=== PATIENT | male | born 1990 | race African-American/Black ===

== ENCOUNTER 2016-08-25 02:45 | Emergency (ER) | payer MEDICAID ==
[~2016-08-25] VITALS: Ht 167.6 cm; Wt 93.9 kg
[2016-08-25 02:56] VITALS: BP 100/68
--- NOTE | 2016-08-25 03:27 | NUR ---
PT TAKEN TO BED 7
--- NOTE | 2016-08-25 03:29 | NUR ---
Dr. Hernandez evaluating patient at bedside.
[2016-08-25] MEDS ORDERED: LIDOCAINE 1% 500 MG/50 ML VIAL INJ ONE (03:40)
--- NOTE | 2016-08-25 03:42 | NUR ---
X-Ray at bedside.
[2016-08-25] MEDS ORDERED: HYDROmorphone 1 MG/ML AMP IVP ONE (04:10)
--- NOTE | 2016-08-25 04:42 | NUR ---
Patient noted to have existing wounds upon arrival to ER. Wound covered with dressing. Physician informed.
[2016-08-25 05:22] VITALS: BP 130/71
--- NOTE | 2016-08-25 05:22 | NUR ---
Patient discharged with v/s stable. Written and verbal after care instructions given and explained. Patient alert, oriented and verbalized understanding of instructions. Ambulatory with steady gait. All questions addressed prior to discharge. ID band removed. Patient advised to follow up with PMD. Rx of IBUPROFEN, NORCO given. Patient educated on indication of medication including possible reaction and side effects. Opportunity to ask questions provided and answered.
== END 2016-08-25 05:22 | disposition home or self-care (01) ==
LOC: MED 02:45
DX: S62.331A Displaced fracture of neck of second metacarpal bone, left hand, initial encounter for closed fracture (principal); S61.412A Laceration without foreign body of left hand, initial encounter; W22.03XA Walked into furniture, initial encounter; Y93.89 Activity, other specified; Y92.89 Other specified places as the place of occurrence of the external cause; Y99.8 Other external cause status
CPT/HCPCS: 12001; 29125; 73130; 96374; 99284; J1170; J2001; Q0092

== ENCOUNTER 2017-09-28 22:48 | Emergency (ER) | payer MEDICAID ==
[~2017-09-28] VITALS: Ht 167.6 cm; Wt 95.3 kg
[2017-09-28 23:02] VITALS: BP 140/90
--- NOTE | 2017-09-28 23:04 | NUR ---
TO BED @ 10 AMBULATORY , REPORT GIVEN TO JIMENA YOUNG. Addendum: 09/28/17 at 2310 by [facility] [place], [place] TO BED # 9, AMBULATORY , REPORT KRISTOPHER TO JIMENA
--- NOTE | 2017-09-28 23:15 | NUR ---
27/M CAME IN ED WITH FAMILY, C/O 01/06 L ANKLE PAIN, NONRADIATING, X3 HOURS. PT STATED HE WAS PLAYING FOOTBALL, "PLANTED MY FOOT AND HEARD A POP." L ANKLE SWELLING NOTED, NO REDNESS, TENDER TO TOUCH, LIMITED ROM DUE TO PAIN AND SWELLING, +CIRCULATION, +SENSATION. SKIN IS INTACT, PINK/WARM/DRY; PATIENT POSITIONED FOR COMFORT; HOB ELEVATED; BEDRAILS UP X2; BED DOWN.
--- NOTE | 2017-09-28 23:16 | NUR ---
PT REFUSED ICE PACKS, L FOOT ELEVATED
[2017-09-28] MEDS ORDERED: KETOROLAC 60 MG/2 ML VIAL IM ONE (23:25)
--- NOTE | 2017-09-29 00:43 | NUR ---
PT SLEEPING COMFORTABLY AT THIS TIME, RR EVEN AND UNLABORED. ALL NEEDS MET.
[2017-09-29 01:30] VITALS: BP 135/90
--- NOTE | 2017-09-29 01:30 | NUR ---
Patient discharged with v/s stable. Written and verbal after care instructions given and explained. Patient alert, oriented and verbalized understanding of instructions. Ambulatory with steady gait. All questions addressed prior to discharge. ID band removed. Patient advised to follow up with PMD. Rx of NAPROSYN 500MG given. Patient educated on indication of medication including possible reaction and side effects. Opportunity to ask questions provided and answered. Addendum: 09/29/17 at 0138 by [facility] DISCHARGE INSTRUCTIONS GIVEN BY DR PRECIADO
--- NOTE | 2017-09-29 01:34 | NUR ---
Dr. Espinal evaluating patient at bedside.
== END 2017-09-29 01:30 | disposition home or self-care (01) ==
LOC: MED 22:48
DX: S90.32XA Contusion of left foot, initial encounter (principal); X58.XXXA Exposure to other specified factors, initial encounter; Y93.61 Activity, american tackle football; Y99.8 Other external cause status; Y92.89 Other specified places as the place of occurrence of the external cause
CPT/HCPCS: 73630; 96372; 99284; J1885

== ENCOUNTER 2017-12-24 23:45 | Emergency (ER) | payer MEDICAID ==
[~2017-12-24] VITALS: Ht 167.6 cm; Wt 95.3 kg
[2017-12-24 23:48] VITALS: BP 122/69
--- NOTE | 2017-12-24 23:52 | NUR ---
PT AMBULATED TO BED 9
--- NOTE | 2017-12-24 23:53 | NUR ---
27/M CAME IN W C/O LEFT LOWER BACK PAIN S/P FALLING OFF 4X4 TODAY. DENIES OTHER INJRUIES/HEAD INJURY/LOC. PT AMBULATED TO BED WITH STEADY GAIT BUT WITH PAIN, +PMSC TO LLE. DENIES OTHER PMH
--- NOTE | 2017-12-25 00:09 | NUR ---
PT TAKEN TO XRAY
--- NOTE | 2017-12-25 00:18 | NUR ---
PT RETURN FROM XRAY
--- NOTE | 2017-12-25 00:31 | NUR ---
Dr. Baum evaluating patient at beside.
[2017-12-25] MEDS ORDERED: KETOROLAC 60 MG/2 ML VIAL IM ONE (00:40)
[2017-12-25] MEDS ORDERED: LORazepam 2 MG/ML VIAL IM ONE (00:40)
[2017-12-25] MEDS ORDERED: fentaNYL 0.05 MG/ML VIAL IM ONE (01:25)
[2017-12-25 01:45] VITALS: BP 123/63
--- NOTE | 2017-12-25 01:45 | NUR ---
Patient discharged with v/s stable. Written and verbal after care instructions given and explained. Patient alert, oriented and verbalized understanding of instructions. Ambulatory with steady gait. All questions addressed prior to discharge. ID band removed. Patient advised to follow up with PMD. Rx of ROBAXIN, MOTRIN given. Patient educated on indication of medication including possible reaction and side effects. Opportunity to ask questions provided and answered.
== END 2017-12-25 01:45 | disposition home or self-care (01) ==
LOC: MED 23:45
DX: M54.5 Low back pain (principal); V86.99XA Unspecified occupant of other special all-terrain or other off-road motor vehicle injured in nontraffic accident, initial encounter; Y93.89 Activity, other specified; Y92.832 Beach as the place of occurrence of the external cause; Y99.8 Other external cause status
CPT/HCPCS: 72100; 96372; 99284; J1885; J2060; J3010

== ENCOUNTER 2019-10-07 20:26 | Emergency (ER) | payer BC, MEDICAID ==
[~2019-10-07] VITALS: Ht 170.2 cm; Wt 103.0 kg
[2019-10-07 20:31] VITALS: BP 144/70
--- NOTE | 2019-10-07 20:36 | NUR ---
PT BACK TO LOBBY.
--- NOTE | 2019-10-07 21:40 | NUR ---
TO ER BED 1
--- NOTE | 2019-10-07 21:50 | NUR ---
PT MOVED TO ER CHAIR C
--- NOTE | 2019-10-07 21:59 | NUR ---
Pt with no med hx presents ambulatory to ED, c/o dysuria/burning with urination, x2 days. Pt denies fever/chills, or back pain. Pt reports hx STD in past, reports one partner. Pt awake and alert, skin normal color warm and dry, rr even and unlabored.
[2019-10-07] MEDS ORDERED: cefTRIAXone 250 MG in LIDOCAINE MPF 1% 0.9 ML IM ONE (22:00)
[2019-10-07] MEDS ORDERED: AZITHROMYCIN 250 MG TAB PO ONE (22:00)
[2019-10-07] MEDS ORDERED: cefTRIAXone 250 MG VIAL ONE (22:07)
[2019-10-07] MEDS ORDERED: LIDOCAINE MPF 1% 5 ML ONE (22:08)
[2019-10-07 22:52] VITALS: BP 108/71
--- NOTE | 2019-10-07 22:53 | NUR ---
Patient discharged with v/s stable. Written and verbal after care instructions given and explained. Patient alert, oriented and verbalized understanding of instructions. Ambulatory with steady gait. All questions addressed prior to discharge. ID band removed. Patient advised to follow up with PMD. Rx of keflex, pyridium given. Patient educated on indication of medication including possible reaction and side effects. Opportunity to ask questions provided and answered.
[2019-10-11 06:07] LABS: CHLAMYDIA TRACHOMATIS AMP DNA Negative (Negative)
== END 2019-10-07 22:52 | disposition home or self-care (01) ==
LOC: MED 20:26
DX: N34.1 Nonspecific urethritis (principal); Z11.3 Encounter for screening for infections with a predominantly sexual mode of transmission
CPT/HCPCS: 81002; 87491; 96372; 99283; J0696; J2001; 36415

== ENCOUNTER 2020-01-17 15:30 | Emergency (ER) | payer BC, MEDICAID ==
[~2020-01-17] VITALS: Ht 167.6 cm; Wt 102.1 kg
[2020-01-17 15:46] VITALS: BP 123/72
[2020-01-17 16:05] VITALS: BP 123/72
--- NOTE | 2020-01-17 16:05 | NUR ---
PATIENT PRESENTS TO ED WITH RIGHT SHOULDER PAIN . PT STATES HE WAS HELPING A FRIEND MOVE . DENIES N/V/D; SKIN IS PINK/WARM/DRY; AAOX4 WITH EVEN AND STEADY GAIT; LUNGS CLEAR BL; HR EVEN AND REGULAR; PT DENIES ANY FEVER, CP, SOB, OR COUGH AT THIS TIME; PATIENT STATES PAIN OF 0/10 AT THIS TIME; VSS;
== END 2020-01-17 16:06 | disposition home or self-care (01) ==
LOC: MED 15:30
DX: S40.011A Contusion of right shoulder, initial encounter (principal); W19.XXXA Unspecified fall, initial encounter; Y93.89 Activity, other specified; Y92.89 Other specified places as the place of occurrence of the external cause; Y99.8 Other external cause status
CPT/HCPCS: 99282

== ENCOUNTER 2023-06-27 06:10 | Emergency (ER) | payer MEDICAID ==
[~2023-06-27] VITALS: Ht 170.2 cm; Wt 93.0 kg
[2023-06-27 06:22] VITALS: BP 127/84; PULSE 68; RESP 20; TEMP 98.1; O2SAT 98
[2023-06-27 06:24] VITALS: O2SAT 99
[2023-06-27] MEDS: DOCUSATE 100 MG/10 ML UDC PO ONE (06:52)
[2023-06-27] MEDS ORDERED: CARB15DR27 OT (08:04)
== END 2023-06-27 08:13 | disposition home or self-care (01) ==
LOC: MED 06:10
DX: H61.21 Impacted cerumen, right ear (principal); H92.01 Otalgia, right ear; Z79.899 Other long term (current) drug therapy
CPT/HCPCS: 99282

== ENCOUNTER 2023-09-22 11:43 | Emergency (ER) | payer OTHER, MEDICAID ==
[~2023-09-22] VITALS: Ht 167.6 cm; Wt 90.7 kg
[~2023-09-22 11:43] MED LIST: CARB15DR27 OT
[2023-09-22 12:17] VITALS: BP 125/78; PULSE 69; RESP 16; TEMP 98.3; O2SAT 97
[2023-09-22] MEDS ORDERED: CETI-366 PO (12:46)
[2023-09-22] MEDS ORDERED: BENZ100C6 PO (12:46)
[2023-09-22] MEDS ORDERED: PRED20TA5 PO (12:46)
[2023-09-22] MEDS ORDERED: IBUP-2213 PO (12:46)
[2023-09-22] MEDS ORDERED: FLONAS NS (12:46)
[2023-09-22 13:56] LABS: FLU A ANTIGEN negative (NEGATIVE); FLU B ANTIGEN negative (NEGATIVE)
[2023-09-23] MEDS ORDERED: CETI-366 PO (14:08)
[2023-09-23] MEDS ORDERED: IBUP-2213 PO (14:08)
[2023-09-23] MEDS ORDERED: PRED20TA5 PO (14:08)
[2023-09-23] MEDS ORDERED: FLONAS NS (14:08)
[2023-09-23] MEDS ORDERED: BENZ100C6 PO (14:08)
== END 2023-09-22 12:52 | disposition home or self-care (01) ==
LOC: MED 11:43
DX: B34.9 Viral infection, unspecified (principal); Z20.822 Contact with and (suspected) exposure to COVID-19; J30.9 Allergic rhinitis, unspecified; Z79.899 Other long term (current) drug therapy
CPT/HCPCS: 99283

== ENCOUNTER 2023-11-01 18:56 | Emergency (ER) | payer OTHER, MEDICAID ==
[~2023-11-01] VITALS: Ht 170.2 cm; Wt 94.3 kg
[~2023-11-01 18:56] MED LIST changes: +BENZ100C6 PO; +CETI-366 PO; +FLONAS NS; +IBUP-2213 PO; +PRED20TA5 PO
[2023-11-01 19:13] VITALS: BP 148/76; PULSE 79; RESP 18; TEMP 97.2; O2SAT 99
[2023-11-01] MEDS ORDERED: LID5T TP (19:33)
[2023-11-01] MEDS ORDERED: CYCL-711 PO (19:33)
[2023-11-01] MEDS ORDERED: NAPR-337 PO (19:33)
[2023-11-01] MEDS: DEXAMETHASONE 4 MG/ML VIAL IM ONE (19:52)
[2023-11-01] MEDS: KETOROLAC 30 MG/ML VIAL IM ONE (19:52)
[2023-11-01] MEDS: LIDOCAINE 5% 1 EA PATCH TP ONE (19:54)
[2023-11-01 20:20] VITALS: BP 129/79; PULSE 81; RESP 17; TEMP 98; O2SAT 99
== END 2023-11-01 20:25 | disposition home or self-care (01) ==
LOC: MED 18:56
DX: S39.012A Strain of muscle, fascia and tendon of lower back, initial encounter (principal); M54.42 Lumbago with sciatica, left side; F12.90 Cannabis use, unspecified, uncomplicated; Z79.1 Long term (current) use of non-steroidal anti-inflammatories (NSAID); Z79.899 Other long term (current) drug therapy; X50.9XXA Other and unspecified overexertion or strenuous movements or postures, initial encounter; Y93.89 Activity, other specified; Y92.89 Other specified places as the place of occurrence of the external cause; Y99.8 Other external cause status
CPT/HCPCS: 96372; 99284; J1100; J1885